=== PATIENT | male | born 1965 | race Caucasian/White ===

== ENCOUNTER 2016-02-14 10:49 | Inpatient (IN) | payer OTHER ==
[2016-02-14] VITALS (30 sets, daily range): BP systolic 131–164; BP diastolic 52–122; PULSE 60–87; RESP 8–27; Ht 188 cm; Wt 118.0 kg
[~2016-02-14] VITALS: Ht 188 cm; Wt 118.0 kg
[2016-02-14] MEDS ORDERED: [UNRECOGNIZED DRUG - CODE] TD (12:07)
[2016-02-14] MEDS ORDERED: ONDA4SOL2 PO (12:07)
[2016-02-14] MEDS ORDERED: HYDR-3671 PO (12:07)
[2016-02-14] MEDS ORDERED: NITR0.4T6 SL (12:07)
[2016-02-14] MEDS ORDERED: HYDR-906 PO (12:07)
[2016-02-14] MEDS ORDERED: LORA1TAB PO (12:07)
[2016-02-14] MEDS ORDERED: ACET-2047 PO (12:07)
[2016-02-14] MEDS ORDERED: MAGN400O4 PO (12:07)
[2016-02-14] MEDS ORDERED: MAG355OR14 PO (12:07)
[2016-02-14] MEDS ORDERED: CARV25TA79 PO (12:07)
[2016-02-14] MEDS ORDERED: ATOR80TA75 PO (12:07)
[2016-02-14] MEDS ORDERED: ZOLP5TAB PO (12:07)
[2016-02-14] MEDS ORDERED: PANT40TA4 PO (12:07)
[2016-02-14] MEDS ORDERED: ASPI325T32 PO (12:07)
[2016-02-14] MEDS ORDERED: MUCO4 PO (12:07)
[2016-02-14] MEDS ORDERED: hydrALAzine 20 MG INJ IV ONE (12:30)
--- NOTE | 2016-02-14 13:19 | CONS ---
Date/Time of Note Date/Time of Note DATE: 02/14/16 TIME: 13:15 Assessment/Plan Assessment/Plan Chief Complaint/Hosp Course NSTEMI: Trop up to 6. EF normal. No further chest pain. Cath today to evaluate coronaries. CKD: baseline Cr 2. Will hydrate GURPREET -cath today for coronary evaluation and possible PCI -ASA, statin, BB -heparin drip has been held Problems: Consultation Date/Type/Reason Admit Date/Time Initial Consult Date Type of Consultation: Cardiology 24 HR Interval Summary Free Text/Dictation Transferred from [facility] with chest pain/NSTEMI (trop of 6). No further chest pain. Doing well. Understands the risks of cath including SASHA and renal failure. Wishes to proceed. Exam/Review of Systems Vital Signs Vitals Vital Signs Date Time Temp Pulse Resp B/P Pulse Ox O2 Delivery O2 Flow Rate FiO2 02/14/16 12:30 64 16 152/95 98 02/14/16 11:16 98.1 Room Air Exam Constitutional: alert, oriented Psych: no complaints Head: normocephalic Neck: No jvd Respiratory: clear to auscultation, No crackles/rales Cardiovascular: regular rate and rhythm, No edema Gastrointestinal: soft Extremities: normal pulses Neurological: nl mental status, nl speech Medications Medications Current Medications Influenza Virus Vaccine (Fluzone) 0.5 ml ONCE ONCE IM* ; Start 02/16/16 at 09:00 ; Stop 02/16/16 at 09:01 SAGE DE LA TORRE Feb 14, 2016 13:19
[2016-02-14] MEDS ORDERED: IODIXANOL LOCM 100 ML BTL ONE ×3 (13:35→14:23)
[2016-02-14] MEDS ORDERED: hydrALAzine 20 MG INJ ONE (13:35)
[2016-02-14] MEDS ORDERED: LIDOCAINE 1% (MDV) 20 ML INJ ONE (13:35)
[2016-02-14] MEDS ORDERED: NITROGLYCERIN (IC) 100 MCG/ML INJ ONE (13:36)
[2016-02-14] MEDS ORDERED: VERAPAMIL 5 MG INJ ONE (13:36)
[2016-02-14] MEDS ORDERED: HEPARIN 1000 UNITS/ML 10 ML INJ ONE (13:36)
[2016-02-14] MEDS ORDERED: MIDAZOLAM 1 MG/ML 2 ML INJ ONE (13:37)
[2016-02-14] MEDS ORDERED: FENTAnyl 50 MCG/ML VIAL ONE ×2 (13:37→14:37)
[2016-02-14] MEDS ORDERED: TICAGRELOR 90 MG TABLET ONE (14:04)
[2016-02-14] MEDS ORDERED: ASPIRIN 325 MG TAB ONE (14:05)
[2016-02-14] MEDS ORDERED: IOHEXOL 350MG/ML 50 ML BTL ONE (14:22)
[2016-02-14] MEDS ORDERED: ACETAMINOPHEN 325 MG TAB PO PRN ×2 (15:30→17:00)
[2016-02-14] MEDS ORDERED: ONDANSETRON 4 MG INJ IV PRN (15:30)
[2016-02-14] MEDS ORDERED: HOLD all METFORMIN and METFORMIN CONTAINING medications for 48 hours post procedure. Chec XX ONE (15:30)
[2016-02-14] MEDS ORDERED: morphine 2 MG INJ IV PRN (15:30)
[2016-02-14] MEDS ORDERED: ZOLPIDEM 5 MG TAB PO PRN (17:00)
[2016-02-14] MEDS ORDERED: LORAZEPAM 1 MG TAB PO PRN (17:00)
[2016-02-14] MEDS ORDERED: AL HYDROX/MG HYDROX/SIMETH 30 ML CUP PO PRN (17:00)
[2016-02-14] MEDS ORDERED: MAGNESIUM HYDROXIDE 30ML CUP PO PRN (17:00)
[2016-02-14] MEDS ORDERED: NITROGLYCERIN (SL) 0.4 MG TAB SL PRN (17:00)
[2016-02-14] MEDS ORDERED: NACL 0.9% 3 ML SYG IV SCH (17:00)
[2016-02-14] MEDS ORDERED: HYDROCODONE/APAP (5/325) TAB PO PRN (17:00)
[2016-02-14] MEDS ORDERED: ONDANSETRON 4 MG TAB PO PRN (17:30)
[2016-02-14] MEDS: hydrALAzine 20 MG INJ IV PRN (18:12)
[2016-02-14] MEDS: METOPROLOL 25 MG TAB PO SCH (20:23)
[2016-02-14] MEDS: TICAGRELOR 90 MG TABLET PO SCH (20:27)
[2016-02-14] MEDS ORDERED: ATORVASTATIN 80 MG TAB PO SCH ×2 (21:00)
[2016-02-15] VITALS (22 sets, daily range): BP systolic 117–166; BP diastolic 85–115; PULSE 66–88; RESP 0–23
[2016-02-15] MEDS: hydrALAzine 20 MG INJ IV PRN (00:14)
[2016-02-15 05:14] LABS: ALBUMIN 3.9 g/dl (3.3-4.9); POTASSIUM 3.8 mmol/L (3.5-5.1)
[2016-02-15 05:16] LABS: BILIRUBIN,INDIRECT 0.6 mg/dl (0-1.1); BILIRUBIN,TOTAL 0.6 mg/dl (0.2-1.3); CREATININE 1.5 mg/dl (0.61-1.24)
[2016-02-15 05:17] LABS: ALBUMIN/GLOBULIN RATIO 1.08; CALCIUM 8.7 mg/dl (8.4-10.2); PHOSPHORUS 3.4 mg/dl (2.5-4.9); TOTAL PROTEIN 7.5 g/dl (6.1-8.1)
[2016-02-15 05:18] LABS: MAGNESIUM 1.8 mg/dl (1.7-2.5)
[2016-02-15] MEDS ORDERED: BIVALIRUDIN 250MG /NS 50 ML 50 ML IVPB ONE (05:53)
[2016-02-15 06:02] LABS: EOSINOPHILS # 0.1 10^3/ul (0.0-0.5); EOSINOPHILS % 0.6 % (0.0-7.0); HEMATOCRIT 43.1 % (42.0-52.0); HEMOGLOBIN 14.8 g/dl (14.0-18.0); LYMPHOCYTES # 1.3 10^3/ul (0.8-2.9); LYMPHOCYTES % 10.4 % (15.0-51.0); MEAN CORPUSCULAR HEMOGLOBIN 30.7 pg (29.0-33.0); MEAN CORPUSCULAR HGB CONC 34.4 g/dl (32.0-37.0); MEAN CORPUSCULAR VOLUME 89.1 fl (82.0-101.0); MEAN PLATELET VOLUME 8.4 fl (7.4-10.4); MONOCYTE # 0.9 10^3/ul (0.3-0.9); MONOCYTES % 7.2 % (0.0-11.0); NEUTROPHILS % 81.8 % (39.0-77.0); PLATELET COUNT 206 10^3/UL (140-440); RED BLOOD COUNT 4.84 10^6/ul (4.70-6.10); UNCORRECTED WBC 12.3 10^3/ul (4.8-10.8); WHITE BLOOD COUNT 12.3 10^3/ul (4.8-10.8)
[2016-02-15 06:12] LABS: CONDITION 1
[2016-02-15] MEDS ORDERED: PANTOPRAZOLE (EC) 40 MG TAB PO SCH (07:00)
[2016-02-15] MEDS: METOPROLOL 25 MG TAB PO SCH (08:33)
[2016-02-15] MEDS: TICAGRELOR 90 MG TABLET PO SCH (08:34)
[2016-02-15] MEDS ORDERED: ASPIRIN 81 MG TAB PO SCH (09:00)
[2016-02-15] MEDS ORDERED: NITROGLYCERIN 0.1 MG/HR PATCH TRANSDERM SCH (09:00)
[2016-02-15] MEDS ORDERED: ASPIRIN (EC) 325 MG TAB PO SCH (09:00)
--- NOTE | 2016-02-15 09:45 | OPR ---
Date/Time of Note Date/Time of Note DATE: 02/15/16 TIME: 09:26 Operative Report Free Text/Dictation Procedure Date:02/14/2016 Procedures Performed: 1)Selective left and right coronary angiography. 2)Balloon angioplasty and stenting of the mid LAD with a Rebel 4.5 x 16 bare metal stent. Pre-operative Diagnosis:NSTEMI Post-operative Diagnosis:NSTEMI s/p PCI of LAD Indications: Description of Procedure: After informed consent, the patient was brought to the cardiac catheterization lab. The procedure site was prepped and draped in usual manner. The patient was premedicated with versed 1mg and fentanyl 50 mcg. 2 mL lidocaine was injected into the right wrist. Next using the posterior wall approach, the 6 lux[place]bourgish sheath was inserted into the right radial artery. Next using the JL3.5 and JR4, selective angiography of the left and right coronary arteries were obtained. The decision was made to proceed with PCI of the LAD. A 6 luxembourgish EBU 3.0 guide was advanced and engaged into the left coronary artery. After appropriate anticoagulation and antiplatelets were given, the BMW angioplasty wire was advanced past the lesion and a second BMW wire was advanced into the diagonal branch for protection. Next the 3.0 X 12 balloon was used to dilate the lesion times 1 at a maximum of 14 familia. Subsequently, the Rebel 4.5 x 16 stent was advanced to the lesion and deployed at nominal pressure jailing the BMW wire in the diagonal. At this time it was noted that the diagonal had no flow. The pt was having very mild chest pain. The BMW wire was removed from the diag and attempted to be readvanced but was not successful. Then a PT 2 light support wire was attempted but again unsuccessful. Next a Fielder XT wire was successfully advanced but neither a 1.5 nor 1.2 balloon would cross. Next the stent was post dilated with the 4.5 X 12 noncompliant balloon times 2 at a maximum of 12 familia to expand the struts and possibly make diagonal access easier. TheFielder XT was again advanced into the diagonal and again the balloon would not cross. At this time the pt was asymptomatic, there was LINDA 1 flow in the diagonal and the decision was made to stop as the pt has significant CKD and the risks outweighed the benefits. Final angiography revealed LINDA 3 flow, no edge dissection, and appropriate stent expansion of the LAD. Next all equipment was removed and hemostasis was achieved by TR band. Findings: Anatomy/Hemodynamics: Left main: luminal irregularities LAD: very large ectatic vessel with mid 80% at diagonal 1 Diagonal 1 small vessel with ostial 30-40% Diagonal 2 small vessel with luminal irregularities Circumflex:large ectatic vessel with 20-30% plaquing Obtuse marginal 1 luminal irregularities Obtuse marginal: there are two very small <2mm distal vessels which have 70-80% disease proximally RCA: 20-30% plaquing PDA:luminal irregularities PLV: luminal irregularities LV angiography: not done due to CKD No significant LV-Ao gradient LVEDP: 18 Contrast used:150 Medications used: Versed 2mg Fentanyl 100 mcg Radial cocktail: 5000 heparin, 2.5 verapamil, 200 NTG NTG 200 mcg IC x4 angiomax bolus plus drip ASA 325mg ticagrelor 180mg Equipment used: 6 luxembourgish EBU 3.0 guide BMW angioplasty wire x2, PT 2 light, Fielder XT 3 x 12 balloon Rebel 4.5 x 16 bare metal stent 4.5 x 12 noncompliant balloon Assessment: NSTEMI s/p successful PCI of LAD with jailing of the diagonal branch and end result of LINDA 1 flow but no symptoms CKD: aggressive hydration started per the Pose[place]on protocol Plan: -admit to ICU -observe renal function -ASA 81mg daily -ticagrelor 90mg BID -metoprolol 50 mg BID -lipitor 80mg -hold ACEI until renal function is trended SAGE DE LA TORRE Feb 15, 2016 09:45
--- NOTE | 2016-02-15 10:13 | CONS ---
Date/Time of Note Date/Time of Note DATE: 02/15/16 TIME: 10:09 Assessment/Plan Assessment/Plan Chief Complaint/Hosp Course NSTEMI: Trop up to 6. EF normal. Cath with significant mid LAD disease s/p successful PCI with a bare metal stent as the vessel was very large and drug eluting stents do not come in that size and very low risk for restenosis. A small diagonal ended with LINDA 1 flow but no chest pain. CKD: baseline Cr 2. Cr down to 1.5 with aggressive hydration GURPREET -ok for d/c with outpt labs Thursday -ASA 81mg and ticagrelor 90mg BID -lipitor -metoprolol -hold ACEI until labs on Thursday -f/u 1-2 weeks Problems: Consultation Date/Type/Reason Admit Date/Time Feb 14, 2016 at 19:50 Type of Consultation: Cardiology 24 HR Interval Summary Free Text/Dictation No o/n events. No chest pain. Ambulated already. Wants to go home. Exam/Review of Systems Vital Signs Vitals Vital Signs Date Time Temp Pulse Resp B/P Pulse Ox O2 Delivery O2 Flow Rate FiO2 02/15/16 08:00 77 02/15/16 07:00 13 144/103 99 02/15/16 04:00 98.9 Room Air 02/14/16 19:13 2.0 Intake and Output 02/14/16 02/14/16 02/15/16 15:00 23:00 07:00 Intake Total 850 ml 400 ml Output Total 1350 ml 900 ml Balance -500 ml -500 ml Exam Constitutional: alert, oriented Psych: no complaints Head: atraumatic, normocephalic Neck: No jvd Respiratory: clear to auscultation, No crackles/rales Cardiovascular: regular rate and rhythm, No systolic murmur Gastrointestinal: non-tender, soft Neurological: nl mental status, nl speech Results Result Diagram: 02/15/16 0430 02/15/16 0430 Results 24 hrs Laboratory Tests Test 02/15/16 04:30 Alanine Aminotransferase (ALT/SGPT) 43 Albumin 3.9 Albumin/Globulin Ratio 1.08 Alkaline Phosphatase 60 Anion Gap 16 Aspartate Amino Transf (AST/SGOT) 170 H Basophils # 0.0 Basophils % 0.0 Blood Urea Nitrogen 18 Calcium Level 8.7 Carbon Dioxide Level 24 Chloride Level 106 Creatinine 1.50 H Direct Bilirubin 0.00 Eosinophils # 0.1 Eosinophils % 0.6 Globulin 3.60 H Glucose Level 105 Hematocrit 43.1 Hemoglobin 14.8 Indirect Bilirubin 0.6 Lymphocytes # 1.3 Lymphocytes % 10.4 L Magnesium Level 1.8 Mean Corpuscular Hemoglobin 30.7 Mean Corpuscular Hemoglobin Concent 34.4 Mean Corpuscular Volume 89.1 Mean Platelet Volume 8.4 Monocytes # 0.9 Monocytes % 7.2 Neutrophils # 10.0 H Neutrophils % 81.8 H Nucleated Red Blood Cells # 0.0 Nucleated Red Blood Cells % 0.0 Phosphorus Level 3.4 Platelet Count 206 Potassium Level 3.8 Red Blood Count 4.84 Red Cell Distribution Width 13.0 Sodium Level 142 Total Bilirubin 0.6 Total Protein 7.5 White Blood Count 12.3 H Medications Medications Current Medications Influenza Virus Vaccine (Fluzone) 0.5 ml ONCE ONCE IM* ; Start 02/16/16 at 09:00 ; Stop 02/16/16 at 09:01 Morphine Sulfate (morphine) 2 mg Q2H PRN IV FOR NON CARDIAC PAIN (4-10); Start 02/14/16 at 15:30 Ondansetron HCl (Zofran Inj) 4 mg Q4H PRN IV NAUSEA AND/OR VOMITING; Start 02/13 at 15:30 Ticagrelor (Brilinta) 90 mg BID PO Last administered on 02/15/16 08:34; Admin Dose 90 MG; Start 02/14/16 at 21:00 Metoprolol Tartrate (Lopressor) 25 mg BID PO Last administered on 02/15/16 08: 33; Admin Dose 25 MG; Start 02/14/16 at 21:00 Hydralazine HCl (Apresoline) 10 mg Q6H PRN IV SBP>160 Last administered on 00:14; Admin Dose 10 MG; Start 02/14/16 at 15:30 Acetaminophen (Tylenol Tab) 650 mg Q6H PRN PO MILD PAIN LEVEL 1-3; Start at 17:00 Atorvastatin Calcium (Lipitor) 80 mg QHS PO Last administered on 02/14/16 20:23 ; Admin Dose 80 MG; Start 02/14/16 at 21:00 Hydralazine HCl (Apresoline) 25 mg Q4H PRN PO SBP > 160 Last administered on 22:02; Admin Dose 25 MG; Start 02/14/16 at 17:00 Acetaminophen/ Hydrocodone Bitart ([place] (5/325)) 1 tab Q4H PRN PO PAIN Last administered on 02/14/16 22:02; Admin Dose 1 TAB; Start 02/14/16 at 17:00 Lorazepam (Ativan) 1 mg Q6 PRN PO ANXIETY Last administered on 02/14/16 19:14; Admin Dose 1 MG; Start 02/14/16 at 17:00 Al Hydrox/Mg Hydrox/Simethicone (Mag-Al Plus) 30 ml Q6 PRN PO GASTROINTESTINAL UPSET Last administered on 02/14/16 20:30; Admin Dose 30 ML; Start 02/14/16 at 17 :00 Magnesium Hydroxide (Milk Of Mag) 30 ml QHS PRN PO CONSTIPATION; Start 02/14/16 at 17:00 Nitroglycerin (Nitroglycerin 0.1 Mg/Hr) 1 patch DAILY TRANSDERM Last administered on 02/15/16 08:32; Admin Dose 1 PATCH; Start 02/15/16 at 09:00 Nitroglycerin (Nitroglycerin (Sl Tab) 0.4 Mg) 1 tab Q5M PRN SL CHEST PAIN; Start 02/14/16 at 17:00 Ondansetron HCl (Zofran Tab) 4 mg Q6H PRN PO NAUSEA AND/OR VOMITING; Start 02/13 at 17:30 Zolpidem Tartrate (Ambien) 5 mg QHS PRN PO INSOMNIA Last administered on 20:22; Admin Dose 5 MG; Start 02/14/16 at 17:00 Aspirin (Aspirin) 81 mg DAILY PO ; Start 02/16/16 at 09:00 SAGE DE LA TORRE Feb 15, 2016 10:13
[2016-02-15] MEDS ORDERED: ASP81 PO (11:13)
--- NOTE | 2016-02-15 12:22 | HP ---
DATE OF ADMISSION: 02/14/2016 HISTORY OF PRESENT ILLNESS: The patient is a 50-year-old gentleman with a past medical history of c hronic kidney disease, obstructive sleep apnea, who presented to [facility] with chest pa in. Troponin peaked at 6 in [facility], at which point the patient was recommended angio gram. The patient is seen post-catheterization in recovery and noted be doing well. Denies fevers, chills, nausea, vomiting, chest pain or shortness of breath. He has been started on Brilinta, aspi rin, and switched from Coreg to metoprolol. Denies difficulty breathing. No fevers, chills, nausea or vomiting. PAST MEDICAL HISTORY: Significant for the above. HOME MEDICATIONS: Include: 1. Tylenol. 2. Aspirin. 3. Lipitor. 4. Hydralazine. 5. Hudson. 6. Lorazepam. 7. Magnesium hydroxide. 8. Nitro-Dur. 9. Protonix. 10. Ambien. 11. Coreg. ALLERGIES: THE PATIENT HAS NO KNOWN ALLERGIES. SOCIAL HISTORY: He does not smoke, drink or use drugs. FAMILY HISTORY: History of kidney disease. REVIEW OF SYSTEMS: A 14-point review of systems was attempted, unless stated is negative. PHYSICAL EXAMINATION: VITAL SIGNS: Temperature 98.9, blood pressure 131/92. HEENT: Head is normocephalic, atraumatic. Pupils are equal, round and reactive to light. Moist muc ous membranes. NECK: Supple. HEART: Regular rate and rhythm. LUNGS: Clear. ABDOMEN: Soft, nontender. Normal active bowel sounds. LABORATORY EVALUATION: , hemoglobin 15, hematocrit 43, creatinine 1.6. UA was reviewed under microscopy. Chest x-ray was reviewed by the radiologist. IMPRESSION: 1. Non-ST elevation myocardial infarction, with post-procedure noting stenting of the mid LAD with a bare metal stent. The patient will be monitored in the ICU until tomorrow and will be on telemetr y. Cardiology will be following. Aggressive medical management will be recommended. 2. Chronic kidney disease. The patient had aggressive hydration protocol. Continue monitori ng. 3. Hypertension. Continue regular medications. Dictated By: GEORGE MCCANN/DONN Conf#: [id number] [facility]#: [id number]
[2016-02-15] MEDS ORDERED: TICA90TA PO (15:01)
[2016-02-15] MEDS ORDERED: METO-448 PO (15:01)
--- NOTE | 2016-02-15 19:01 | DS ---
DATE OF ADMISSION: 02/14/2016 DATE OF DISCHARGE: 02/15/2016 The patient is a 50-year-old gentleman admitted for angiogram after having a non-ST elevation MN at Hospital. The patient had LAD stenting done with bare metal stents. Postoperative uncompli cated course. The patient had repeat bouts of acute on chronic renal insufficiency. Creatinine sta yed stable with his creatinine being 1.5. The patient was treated with ____ protocol for progressiv e hydration. The patient's medications were explained to him and he will be discharged to follow up as an outpatient with primary medical office assistant instructor and cardiology. CONDITION ON DISCHARGE: Fair. DISCHARGE ACTIVITY: As tolerated. DISCHARGE MEDICATIONS: CTMS. DISCHARGE DIAGNOSIS: 1. Non-ST elevation myocardial infarction, status post percutaneous coronary intervention of left a nterior descending lesion. 2. Acute on chronic renal insufficiency. Dictated By: GEORGE MCCANN/DONN Conf#: [id number] [facility]#: [id number]
[2016-02-16] MEDS ORDERED: ASPIRIN 81 MG TAB PO SCH (09:00)
[2016-02-16] MEDS ORDERED: INFLUENZA VIRUS VACCINE 0.5 ML (DISPENSING) IM* ONE (09:00)
== END 2016-02-15 16:00 | disposition home or self-care (01) | DRG 249 ==
LOC: SDS 10:49 → ICU 19:50 → SDS 19:50
PROVIDERS: ADMIT Internal Medicine Interventional Cardiology; ATTEND Internal Medicine Interventional Cardiology
PROC: 02703DZ Dilation of Coronary Artery, One Artery with Intraluminal Device, Percutaneous Approach (ICD-10-PCS; principal; 2016-02-15)
PROC: 4A023N7 Measurement of Cardiac Sampling and Pressure, Left Heart, Percutaneous Approach (ICD-10-PCS; 2016-02-15)
PROC: B2101ZZ Fluoroscopy of Single Coronary Artery using Low Osmolar Contrast (ICD-10-PCS; 2016-02-15)
DX: I21.4 Non-ST elevation (NSTEMI) myocardial infarction (principal); N17.9 Acute kidney failure, unspecified; N18.3 Chronic kidney disease, stage 3 (moderate); I12.9 Hypertensive chronic kidney disease with stage 1 through stage 4 chronic kidney disease, or unspecified chronic kidney disease; E66.9 Obesity, unspecified; Z68.38 Body mass index [BMI] 38.0-38.9, adult; G47.30 Sleep apnea, unspecified
CPT/HCPCS: 80053; 83735; 84100; 85025; 92928; 93458; C1725; C1769; C1876; C1887; J0360; J0583; J1644; J2250; J3010; Q9967